=== PATIENT | female | born 1970 | race Caucasian/White ===

== ENCOUNTER → 2017-09-29 | Outpatient (CLI) | payer OTHER ==
[~2017-09-29] MED LIST: ALAVERT10 MG; ATENOLOL 25 MG25 M1 PG; BIRTH CONTROL PILL; HYDROCHLOROTHIA25 M1; NORCO 5-325 TA1 EACH PO; VICODIN 5-5001 EACH PO; WELLBUTRIN SR150 MG PO
== END ==
LOC: M.RAD 16:05
DX: Z12.31 Encounter for screening mammogram for malignant neoplasm of breast (principal)

== ENCOUNTER → 2017-10-05 | Outpatient (CLI) | payer OTHER | LOC: M.RAD 09-30 09:08 | DX: N63.41 Unspecified lump in right breast, subareolar (principal) ==